=== PATIENT | female | born 1980 ===

== ENCOUNTER 2021-10-09 13:41 | Day surgery (SDC) | payer OTHER ==
[~2021-10-09] VITALS: Ht 152.4 cm; Wt 64.9 kg
[2021-10-09] MEDS ORDERED: KETO10TA2 PO (16:54)
[2021-10-09] MEDS ORDERED: PERCOCET 5-3251 EACH PO (16:55)
== END 2021-10-09 20:45 | disposition home or self-care (01) ==
LOC: CIR.AMB 13:41
PROVIDERS: ATTEND Obstetrics & Gynecology
DX: N97.1 Female infertility of tubal origin (principal); N84.0 Polyp of corpus uteri; Z20.822 Contact with and (suspected) exposure to COVID-19; D25.2 Subserosal leiomyoma of uterus; N80.9 Endometriosis, unspecified